=== PATIENT | female | born 1995 | race Caucasian/White ===

== ENCOUNTER 2018-11-27 07:48 | Inpatient (IN) | payer OTHER ==
[2018-11-27] MEDS ORDERED: Bupivacaine/Epinephrine 0.25% 30 ML VIAL ONE ×2 (08:36→10:26)
[2018-11-27] MEDS ORDERED: Midazolam HCl 2 mg/2 ml Vial ONE (08:42)
[2018-11-27] MEDS ORDERED: Fentanyl 250 MCG/5 ML VIAL ONE ×2 (08:45→10:44)
--- NOTE | 2018-11-27 09:01 | HP ---
CHIEF COMPLAINT: Right upper quadrant abdominal pain. HISTORY OF PRESENT ILLNESS: The patient is a 23-year-old female, who is in June and since just before the child was born, she has been having episodic right upper quadrant pain, which became much worse over the last 48 hours and now is more radiating to the back associated with nausea, no vomiting. She went to the emergency room, where an ultrasound shows cholelithiasis. She denies jaundice, but she has had some dark stools. PAST MEDICAL HISTORY: Otherwise healthy. PAST SURGICAL HISTORY: None. ALLERGIES: SHE HAS NO KNOWN DRUG ALLERGIES. FAMILY HISTORY: Diabetes, hypertension, and lung cancer. SOCIAL HISTORY: Again, she is recently . She works as a residential property tax appraiser. PHYSICAL EXAMINATION: GENERAL: Awake, alert, in no apparent distress. HEENT: No jaundice. LUNGS: Clear. HEART: Regular rate and rhythm. ABDOMEN: Soft, tender right upper quadrant. No peritoneal signs. EXTREMITIES: Unremarkable. LABORATORY DATA: White count 5.2, H and H of 13 and 40, and platelet count 253. Her LFTs are elevated, alkaline phosphatase 158, ALT 830, AST 924, and T-bili 2.3. ASSESSMENT: Symptomatic cholelithiasis with possible choledocholithiasis. PLAN: Laparoscopic cholecystectomy with cholangiogram. CONSENT: I have discussed planned procedure as well as risk of bleeding, infection, injury to bile duct, injury to bowel, need to open, she understands and gives informed consent. Job ID: [id number]
[2018-11-27 09:33] LABS: BHCG - Serum Negative (NEGATIVE); Pregs Control Background? CLEAR/WHITE (CLR/WHITE); Pregs Control Bar Appear? YES (CONTROL BAR)
[2018-11-27] MEDS ORDERED: Morphine 4 MG/ML VIAL ONE (09:43)
[2018-11-27] MEDS ORDERED: Iothalamate Meglumine 60% 50 ML VIAL FS ONE (10:43)
--- NOTE | 2018-11-27 11:39 | RAD ---
EXAM: Cholangiogram in surgery HISTORY: Cholelithiasis COMPARISON: None FINDINGS: Limited intraoperative fluoroscopic views were taken during a cholangiogram in surgery. The common bile duct is normal in caliber without filling defect. No leakage from the common bile duct. Contrast is not seen passing into the duodenum. No abnormality of the intrahepatic bile ducts. IMPRESSION: Failure of passage of contrast into the duodenum on the provided images. Correlate clinically. This c ould represent an obstruction at the ampulla of Vater or insufficient contrast administration.
[2018-11-27] MEDS ORDERED: Dextrose 50% Abboject 50 ML SYRINGE SLOW IVP PRN (11:52)
[2018-11-27] MEDS ORDERED: Promethazine HCl 25 MG/ML VIAL IM PRN ×2 (11:52→11:57)
[2018-11-27] MEDS ORDERED: Dextrose 5% in Water 1,000 ML IV PRN (11:52)
[2018-11-27] MEDS ORDERED: Ondansetron PF 4 MG/2 ML Vial IVP PRN (11:52)
[2018-11-27] MEDS ORDERED: Mag-Al 1200 mg/1200 mg/30 ML UDCUP PO PRN (11:52)
[2018-11-27] MEDS ORDERED: HYDROcodone/Acetaminophen 10/325 mg Tablet PO PRN ×2 (11:52)
[2018-11-27] MEDS ORDERED: Calcium Carbonate 500 MG ChewTAB PO PRN (11:52)
[2018-11-27] MEDS ORDERED: Morphine 4 MG/ML VIAL SLOW IVP PRN ×2 (11:52→14:28)
[2018-11-27] MEDS ORDERED: hydrALAZINE 20 MG/ML VIAL SLOW IVP PRN (11:52)
[2018-11-27] MEDS ORDERED: Promethazine HCl 25 MG/ML VIAL SLOW IVP PRN (11:57)
[2018-11-27] MEDS ORDERED: Ondansetron HCl/PF 4 MG/2 ML Vial IVP PRN (11:57)
[2018-11-27] MEDS ORDERED: Fentanyl 100 MCG/2 ML VIAL ONE ×2 (12:05→12:28)
--- NOTE | 2018-11-27 12:11 | OP ---
DATE OF PROCEDURE: 11/27/2018 PREOPERATIVE DIAGNOSIS: Acute cholecystitis with elevated liver functions. PROCEDURE PERFORMED: Laparoscopic cholecystectomy with cholangiogram. INDICATIONS: This is a 23-year-old female, who has been having about 3-month history of episodic right upper quadrant pain, which became much worse over the last 36 hours, radiating to back associated with nausea and vomiting. Ultrasound showed cholelithiasis. Her bilirubin was 2.2 and transaminases elevated. FINDINGS: An obstructed distal common bile duct, thickening of the gallbladder wall with edema. DESCRIPTION OF PROCEDURE: After informed consent was obtained, the patient was taken to the operating room and given general endotracheal anesthesia. She was placed in the supine position. Abdomen was prepped and draped in usual fashion. Local anesthesia infiltrated subcutaneously and deep and a subumbilical incision was performed. Subcu divided sharply. The fascia was grasped and 2 stay sutures of 0 Vicryl placed in each side of midline. Midline incised. Digital palpation revealed no local adhesions. A blunt 12-mm trocar inserted and under direct vision, three 5 mm ports were placed subcostally. The gallbladder was grasped and advanced superiorly. There were adhesions. Also, the gallbladder had to be decompressed prior to grabbing it because it was so distended. Approximately 50 mL of bile removed. The peritoneum opened distally to expose the cystic duct and artery in critical view. The artery was triply ligated and divided. A clip was placed at the base of the gallbladder. An incision made in the cystic duct. An Arrow cholangiocatheter inserted. Intraoperative cholangiogram showed no filling defects, but no flow into the duodenum suggestive of a distal common bile duct obstruction. The cystic duct was triply ligated with hemoclips and divided. The gallbladder removed from its fossa utilizing electrocautery, removed from the abdomen in an endosac through the umbilical port. Hemostasis was assured. Trocars and retractors were removed. The fascia was closed with interrupted 2-0 Vicryl suture. The skin was closed with interrupted 4-0 Rapide. Dermabond applied. The patient tolerated the procedure well, transferred to Recovery in good condition. Sponge and needle count verified correct x2. Job ID: [id number]
[2018-11-27] MEDS ORDERED: Morphine 2 MG/ML SYRINGE SLOW IVP PRN (13:40)
[2018-11-27] MEDS: Ketorolac Tromethamine 30 MG/ML VIAL IVP SCH ×3 (13:49→23:51)
[2018-11-27] MEDS ORDERED: Ondansetron PF 4 MG/2 ML Vial ONE (14:41)
[2018-11-27] MEDS ORDERED: PROPOFOL 200 MG/20 ML VIAL ONE (14:41)
[2018-11-27] MEDS ORDERED: Rocuronium Bromide 10 MG/ML (10ML VIAL) ONE (14:41)
[2018-11-27] MEDS ORDERED: Glycopyrrolate 0.2 MG/ML 5 ML SYRINGE ONE (14:41)
[2018-11-27] MEDS ORDERED: Dexamethasone 20 MG/5 ML VIAL ONE (14:41)
[2018-11-27] MEDS: Morphine 4 MG/ML VIAL SLOW IVP PRN ×7 (15:08→23:51)
[2018-11-27 17:16] VITALS: BMI 21.0
[2018-11-27] MEDS: D5 1/2 NS w/20 mEq KCL 1,000 ML IV SCH ×2 (18:06→20:54)
[2018-11-27] MEDS: Piperacillin/Tazobactam 3.375 GM in Sodium Chloride 0.9% 100 ML IVPB SCH ×3 (18:07→23:52)
--- NOTE | 2018-11-27 20:43 | CON ---
DATE OF CONSULTATION: 11/27/2018 CHIEF COMPLAINT: Abdominal pain. HISTORY OF PRESENT ILLNESS: Ms. Graff is a 23-year-old woman, who delivered a healthy baby boy back in June. A week before delivery, she had her first episode of right upper quadrant abdominal pain that was associated with nausea and radiated across her upper abdomen and to her back. This pain lasted for 30 to 40 minutes. Since then, she has had a similar episode about every 2 weeks. Tuesday night, two nights ago, she woke up with more severe pain and this time the pain persisted. She had nausea and pain that went all day Tuesday and then ultimately worsened yesterday such that she went to [facility] ER. She had an ultrasound done that showed gallstones and gallbladder wall thickening. Her common bile duct measured 3 mm. Her bilirubin was 2.3 with a GGT of 169, an AST of 924, ALT of 835, and alkaline phosphatase of 158. Creatinine was 0.7. Platelets 253. White blood cell count was 5.2 and hemoglobin 13.8. With these findings, she was transferred to [facility] Day [facility] and Dr. Cowan performed laparoscopic cholecystectomy with intraoperative cholangiogram today. The intraoperative cholangiogram showed failure of passage of contrast into the duodenum and GI was consulted to evaluate for ERCP. The patient continues to have back pain as her primary complaint before surgery and persisting afterwards. She has received morphine for that with some improvement. She is on antibiotics. PAST MEDICAL HISTORY: Otherwise negative. PAST SURGICAL HISTORY: Negative. FAMILY HISTORY: She had a great uncle with lung cancer. SOCIAL HISTORY: Glass of wine per week. No drugs or alcohol or smoking otherwise. ALLERGIES: NO KNOWN DRUG ALLERGIES. MEDICATIONS: Prior to admission, none. REVIEW OF SYSTEMS: Negative x10 systems reviewed except as stated in the history of present illness. PHYSICAL EXAMINATION: VITAL SIGNS: Temperature 97.5, pulse 60, blood pressure 131/87. GENERAL: She is in no acute distress. Alert and oriented x3. HEENT: Eyes have no scleral icterus. Oropharynx is clear without lesions. No cervical or supraclavicular lymphadenopathy. LUNGS: Clear to auscultation bilaterally. HEART: Regular rate and rhythm without murmur. ABDOMEN: Soft. She does have minimal tenderness in the epigastric region now. Her bowel sounds are present. EXTREMITIES: No lower extremity edema. EXTREMITIES: Cranial nerves are grossly intact. LABORATORY DATA: Her serum test was negative. The other labs were noted in the history of present illness. IMAGING STUDIES: Again, the ultrasound was noted in the history of present illness. Intraoperative cholangiogram showed no flow of bile to the duodenum. IMPRESSION: 1. Choledocholithiasis. 2. Cholecystitis, status post laparoscopic cholecystectomy today with abnormal intraoperative cholangiogram. 3. Abnormal liver function tests with transaminases in the 800 to 900 range, elevated bilirubin, and alkaline phosphatase. Her symptoms have been typical of biliary symptoms leading up to this. The lipase was a qualitative level from [facility] ER and was reported as negative. She did receive a liter of saline bolus in the ER last night. She received a liter of lactated Ringer's during surgery today. I will recheck a lipase. RECOMMENDATIONS: 1. ERCP tomorrow morning. 2. Continue antibiotics. She is currently on Zosyn. 3. Recheck lipase now and in the morning along with liver function tests tomorrow morning. I explained the risks and benefits in detail of ERCP with the patient. This includes risks for bleeding, infection, perforation, pancreatitis and inability to cannulate the common bile duct. Job ID: [id number]
[2018-11-27] MEDS: Famotidine 20 MG TAB PO SCH (20:50)
[2018-11-27] MEDS: Famotidine/PF 20 mg/2ml Vial SLOW IVP SCH (20:50)
[2018-11-28] MEDS: Morphine 4 MG/ML VIAL SLOW IVP PRN ×2 (01:38→15:26)
[2018-11-28] MEDS: D5 1/2 NS w/20 mEq KCL 1,000 ML IV SCH ×3 (04:10→23:22)
[2018-11-28] MEDS: Ketorolac Tromethamine 30 MG/ML VIAL IVP SCH ×4 (06:12→23:21)
[2018-11-28] MEDS: Piperacillin/Tazobactam 3.375 GM in Sodium Chloride 0.9% 100 ML IVPB SCH ×4 (06:13→23:21)
[2018-11-28 06:22] LABS: #Eosinphils 0.1 thou/uL (0.0-0.7); #Lymphocytes 1.9 thou/uL (1.20-3.40); #Monocytes 0.6 thou/uL (0.11-0.59); #Neutrophils 4.3 thou/uL (1.40-6.50); %Basophils 0.3 % (0.0-1.0); %Eosinophils 1.1 % (0.0-10.0); %Lymphocytes 26.8 % (21.0-51.0); %Monocytes 9.1 % (0.0-10.0); %Neutrophils 62.8 % (42.0-75.0); Hemoglobin 12.4 g/dL (12.0-16.0); Mean Corpuscular HGB CONC 33.1 g/dL (32.0-36.0); Mean Corpuscular Hemoglobin 28.9 pg (27.0-31.0); Mean Corpuscular Volume 87.4 fL (78.0-98.0); Mean Platelet Volume 8.4 fL (7.4-10.4); Platelet Count 209 thou/uL (130-400); RBC Distribution Width 12.5 % (11.5-14.5); Red Blood Cell (RBC) Count 4.29 mill/uL (4.20-5.40); White Blood Cell (WBC) Count 6.9 thou/uL (4.8-10.8)
[2018-11-28 06:42] LABS: ALT (SGPT) 762 U/L (8-55); AST (SGOT) 333 U/L (5-34); Albumin 3.7 g/dL (3.5-5.0); Alkaline Phosphatase 161 U/L (40-150); Anion Gap 9 mmol/L (10-20); BUN (Urea Nitrogen) 5 mg/dL (7.0-18.7); Calc. Creatinine Clearance 106 mL/min (70-130); Calcium 8.5 mg/dL (7.8-10.44); Carbon Dioxide 24 mmol/L (22-29); Chloride 106 mmol/L (98-107); Estimated GFR-MDRD 90; Globulin 2.3 g/dL (2.4-3.5); Glucose 107 mg/dL (70-105); Lipase 278 U/L (8-78); Potassium 4.1 mmol/L (3.5-5.1); Sodium 135 mmol/L (136-145)
[2018-11-28 06:57] LABS: ALT (SGPT) 767 U/L (8-55); AST (SGOT) 332 U/L (5-34); Albumin 3.7 g/dL (3.5-5.0); Alkaline Phosphatase 164 U/L (40-150); Bilirubin, Direct 0.6 mg/dL (0.1-0.3)
--- NOTE | 2018-11-28 07:34 | PDOC.GSPN ---
Surgery Progress Note: Subj - Subjective Narrative: Ms. Graff is a 23 y/o female post operative day 1 following laparoscopic cholecystectomy with cholangiogram. The cholangiogram showed an obstructed distal common bile duct, so pt was scheduled for an ERCP today at 11 a.m. Currently, she states that "I feel better than I did yesterday", describing a constant, achy, 4/10 pain that fluctuates between her RUQ and back. Per nurse, pt was rating pain 9/10 yesterday evening and frequently requesting morphine; however, this morning pt states that her pain is currently well controlled. Pt slept well, is urinating without difficulties, has not had a bowel movement, and has been NPO since midnight in preparation for ERCP today. She is ambulating to the bathroom well, but was told by a nurse not to walk the floors while taking morphine. Denies fever, SOB, hematemesis, N/V/D, melena, hematochezia, chest pain. Surgery Progress Note: Obj - Vital signs Vital signs: Vital Signs - Most Recent Temp Pulse Resp BP Pulse Ox 98.8 F 59 L 16 102/69 98 11/28/18 04:07 11/28/18 04:07 11/28/18 04:07 11/28/18 04:07 11/28/18 04:07 - Physical Exam General: other (Pt was out of bed sitting upright on the couch in no apparent distress.) ENT: normal mucosa, other (no scleral icterus, moist mucous membranes) Cardiovascular: regular rate and rhythm, no murmur Respiratory: clear to auscultation, normal respiratory effort, breath sounds present Abdomen: other (Abdomen is soft, non-distended, NABS, and mildly tender in RUQ with palpation. Incision sites are healing well with no erythema/edema/warmth concerning of infection.) Wound: healing well Surgery Progress Note: Results - Labs Result Diagrams: 11/28/18 06:02 11/28/18 06:02 Lab results: Laboratory Results - last 24 hr 11/28/18 11/28/18 11/28/18 06:02 06:02 06:02 WBC 6.9 RBC 4.29 Hgb 12.4 Hct 37.5 MCV 87.4 MCH 28.9 MCHC 33.1 RDW 12.5 Plt Count 209 MPV 8.4 Neutrophils % 62.8 Lymphocytes % 26.8 Monocytes % 9.1 Eosinophils % 1.1 Basophils % 0.3 Neutrophils # 4.3 Lymphocytes # 1.9 Monocytes # 0.6 H Eosinophils # 0.1 Basophils # 0.0 Sodium 135 L Potassium 4.1 Chloride 106 Carbon Dioxide 24 Anion Gap 9 L BUN 5 L Creatinine 0.80 Estimated GFR (MDRD) 90 Glucose 107 H Calcium 8.5 Total Bilirubin 1.0 1.0 Direct Bilirubin 0.6 H AST 333 H 332 H ALT 762 H 767 H Alkaline Phosphatase 161 H 164 H Serum Total Protein 6.0 6.0 Albumin 3.7 3.7 Globulin 2.3 L Albumin/Globulin Ratio 1.6 Lipase 278 H Surgery Progress Note: A/P - Problem (1) S/P cholecystectomy Current Visit: Yes Code(s): Z90.49 - ACQUIRED ABSENCE OF OTHER SPECIFIED PARTS OF DIGESTIVE TRACT Status: Acute - Plan Plan: Ms. Graff is a 23 y/o female post operative day 1 from laparoscopic cholecystectomy with cholangiogram that showed an obstructed distal common bile duct. Pt was admitted overnight and remains NPO for scheduled ERCP this morning. Pt's pain is currently well controlled and she is able to ambulate to bathroom and urinate without difficulty. She has remained afebrile the entire time she's been on the floor, vitals are WNL, and remains on Zosyn (last dose was 11/28 at 0613). Pt's CBC from 11/28/18 at 0600 is WNL, AST is 332, ALT 767, Alk Phosphatase is 164, total bilirubin is 1.0 and direct is 0.6 (H), while Lipase has increased to 278 today from 17 on 11/27. We will continue to monitor for any post-op complications and plan is to discharge patient following ERCP, if stable.
[2018-11-28] MEDS ORDERED: Indomethacin 50 MG SUPP ONE (09:59)
[2018-11-28] MEDS ORDERED: Iothalamate Meglumine 60% 50 ML VIAL FS ONE (09:59)
[2018-11-28] MEDS ORDERED: Fentanyl 100 MCG/2 ML VIAL ONE ×2 (10:04→10:13)
[2018-11-28] MEDS ORDERED: Midazolam HCl 2 mg/2 ml Vial ONE (10:13)
--- NOTE | 2018-11-28 11:09 | RAD ---
ERCP: DATE: 11/28/18 Five fluoroscopic images presented from ERCP procedure. INDICATION: Imaging during ERCP. FINDINGS/IMPRESSION: These images show opacification of the common duct and biliary tree. Evidence of cholecystectomy with cystic duct remnant. No definite stricture or filling defect identified. POS: OFF
--- NOTE | 2018-11-28 13:52 | PRG ---
DATE OF SERVICE: 11/28/2018 SUBJECTIVE: The patient reports that she had tremendous pain last night, but this morning feels a lot better. Nausea has resolved. Pain has gone. OBJECTIVE: VITAL SIGNS: On examination, temperature is 98.5, pulse 60, blood pressure 106/72. GENERAL: She is awake, alert, in no apparent distress. No jaundice. LUNGS: Clear. HEART: Regular rate and rhythm. LABORATORY DATA: Her white count is 6.9, hemoglobin and hematocrit of 12 and 37, platelet count 209. Her LFTs have come back down with her bilirubin now at 1, AST is 333, ALT 760, alkaline phosphatase 161, lipase 278. ASSESSMENT: Doing well, probably passed the stone. PLAN: ERCP later today. Job ID: [id number]
[2018-11-28] MEDS ORDERED: Dexamethasone 20 MG/5 ML VIAL ONE (15:18)
[2018-11-28] MEDS ORDERED: Ondansetron PF 4 MG/2 ML Vial ONE (15:18)
[2018-11-28] MEDS ORDERED: PROPOFOL 200 MG/20 ML VIAL ONE (15:18)
[2018-11-28] MEDS ORDERED: Lidocaine 1% PF 5 ML VIAL ONE (15:18)
[2018-11-28] MEDS ORDERED: Glycopyrrolate 0.2 MG/ML 5 ML SYRINGE ONE (15:18)
[2018-11-28] MEDS ORDERED: Rocuronium Bromide 10 MG/ML (10ML VIAL) ONE (15:18)
--- NOTE | 2018-11-28 15:54 | OP ---
DATE OF PROCEDURE: 11/28/2018 PREPROCEDURE DIAGNOSIS: Status post laparoscopic cholecystectomy with positive intraoperative cholangiogram, elevated liver enzymes. POSTOPERATIVE DIAGNOSIS: No overt filling defects in the common bile duct, this is dilated to about 9 mm. PROCEDURE PERFORMED: Endoscopic retrograde cholangiopancreatography with sphincterotomy and stone removal of biliary debris, but no overt large stones to bile duct. RECOMMENDATIONS: Observe. If the patient does well, can be discharged this evening. ANESTHESIA: General endotracheal anesthesia. PROCEDURE IN DETAIL: The patient was informed of the risks, benefits, and possible complications of endoscopy including perforation, reaction to medication, and aspiration, informed consent was obtained. The patient brought to endoscopy suite, where she was sedated in gradual fashion. Once she was comfortable, she was intubated and placed in a prone position. A drama therapist film was obtained showing clips in the right upper quadrant consistent with previous cholecystectomy. The side-viewing duodenoscope was advanced with bite block to esophagus, stomach, and second and third portions of the duodenum and was brought into view. A cannulation was obtained, and cholangiogram revealed no overt large filling defects. There was no spontaneous drainage of contrast. The sphincterotomy was performed over a guidewire. The duct was then swept x4 with occlusion cholangiogram showing no overt filling defects. There were no signs of bile leak. There was a little bit of debris in the balloon and so some debris was extracted. This may have been the cause of the abnormal IOC. In any event, either that happened or she passed the stone, the scope was removed. The stomach was desufflated. The patient was brought to recovery room in stable condition. Job ID: [id number]
[2018-11-28] MEDS: Famotidine 20 MG TAB PO SCH ×2 (16:56→21:03)
[2018-11-28] MEDS: Famotidine/PF 20 mg/2ml Vial SLOW IVP SCH ×2 (16:56→21:03)
[2018-11-29] MEDS: Ketorolac Tromethamine 30 MG/ML VIAL IVP SCH (05:55)
[2018-11-29] MEDS: Piperacillin/Tazobactam 3.375 GM in Sodium Chloride 0.9% 100 ML IVPB SCH (05:56)
[2018-11-29] MEDS: D5 1/2 NS w/20 mEq KCL 1,000 ML IV SCH (05:56)
[2018-11-29 06:26] LABS: ALT (SGPT) 550 U/L (8-55); AST (SGOT) 139 U/L (5-34); Albumin 3.7 g/dL (3.5-5.0); Alkaline Phosphatase 144 U/L (40-150); Bilirubin, Direct 0.3 mg/dL (0.1-0.3); Bilirubin, Total 0.5 mg/dL (0.2-1.2)
--- NOTE | 2018-11-29 07:14 | PDOC.GSPN ---
Surgery Progress Note: Subj - Subjective Narrative: Ms. Graff is a 23 y/o female post operative day 2 following laparoscopic cholecystectomy with cholangiogram. She had an ERCP yesterday with sphincterotomy which showed no overt large stones in common bile duct. Pt was kept overnight because she became bradycardic, which has now resolved. This morning pt states, "I'm feeling better...ready to go home". RUQ and back pain have completely resolved with only an achy 3/10 pain at the umbilical incision site, which is controlled with Toradol (last dose 0555 today). LFTs are improving and she remains on Zosyn (last dose 0556 today). Diet has been advanced to full liquids and pt has tolerated that, and some crackers given last night, well. States that her appetite is still low, but forcing herself to drink/eat. She is walking to bathroom unassisted and having multiple voids, but still has not had a bowel movement. Denies N/V/D, fever, dysphagia, melena , or hematochezia. Surgery Progress Note: Obj - Vital signs Vital signs: Vital Signs - Most Recent Temp Pulse Resp BP Pulse Ox 98.6 F 65 18 118/67 99 11/29/18 03:56 11/29/18 03:56 11/29/18 03:56 11/29/18 03:56 11/29/18 03:56 - Physical Exam General: no distress ENT: other (no sclera icterus, normal mucosa, moist mucous membranes) Cardiovascular: regular rate and rhythm, no murmur Respiratory: clear to auscultation, normal respiratory effort Abdomen: other (soft, non-distended, NABS, mild tenderness with palpation near umbilicus. Incision sites are healing well with no erythema, edema, or warmth concerning of infection.) Wound: healing well Surgery Progress Note: Results - Labs Result Diagrams: 11/28/18 06:02 11/28/18 06:02 Lab results: Laboratory Results - last 24 hr 11/29/18 05:54 Total Bilirubin 0.5 Direct Bilirubin 0.3 AST 139 H ALT 550 H Alkaline Phosphatase 144 Serum Total Protein 6.0 Albumin 3.7 Surgery Progress Note: A/P - Problem (1) S/P cholecystectomy Code(s): Z90.49 - ACQUIRED ABSENCE OF OTHER SPECIFIED PARTS OF DIGESTIVE TRACT Status: Acute - Plan Plan: Ms. Graff is a 23 y/o female post operative day 2 from lap. cholecystectomy with cholangiogram. ERCP yesterday showed no overt large stone obstructing the common bile duct, but patient was kept overnight because she became bradycardic, which has now resolved. Today she states that she is feeling well and is ready to go home. LFTs are improving, with today's labs of AST 139 (was 333 yesterday), ALT 550 (762), and Alk. Phosphatase 144 (161). Plan is to discharge patient today with Toradol for pain control.
[2018-11-29] MEDS: Famotidine/PF 20 mg/2ml Vial SLOW IVP SCH (07:33)
[2018-11-29] MEDS: Famotidine 20 MG TAB PO SCH (07:44)
[2018-11-29 08:06] VITALS: BP 114/70; TEMP 98.7
--- NOTE | 2018-11-30 04:47 | DIS ---
DATE OF ADMISSION: 11/27/2018 DATE OF DISCHARGE: 11/29/2018 DISCHARGE DIAGNOSES: 1. Acute cholecystitis. 2. Choledocholithiasis. PROCEDURES DURING ADMISSION: 1. Laparoscopic cholecystectomy with intraoperative cholangiogram. 2. Endoscopic retrograde cholangiopancreatogram. HOSPITAL COURSE: The patient was admitted, given IV antibiotics, taken to the operating room, where she underwent a laparoscopic cholecystectomy with cholangiogram. This showed an obstruction of the distal common bile duct. Her LFTs were elevated. GI was consulted. She had tremendous pain. By the morning, the pain had resolved and her LFTs had come down. ERCP showed no residual filling defect, but a sphincterotomy was performed. Postprocedure, she has done well. She feels fine now. She is tolerating a regular diet. Pain is controlled on p.o. medications. She is discharged home on hydrocodone and Zofran. She will follow up with me in 2 weeks. Job ID: [id number]
== END 2018-11-29 09:27 | disposition home or self-care (01) | DRG 419 ==
LOC: SDC 07:48 → 3SE 12:53
PROVIDERS: ADMIT Surgery; ATTEND Surgery
PROC: 0FT44ZZ Resection of Gallbladder, Percutaneous Endoscopic Approach (ICD-10-PCS; principal; 2018-11-27)
PROC: BF10YZZ Fluoroscopy of Bile Ducts using Other Contrast (ICD-10-PCS; 2018-11-27)
PROC: 0FC98ZZ Extirpation of Matter from Common Bile Duct, Via Natural or Artificial Opening Endoscopic (ICD-10-PCS; 2018-11-28)
DX: K80.43 Calculus of bile duct with acute cholecystitis with obstruction (principal)
CPT/HCPCS: 36415; 47532; 74330; 80053; 80076; 83690; 84703; 85025; 88304; J1100; J1885; J2001; J2250; J2270; J2405; J2543; J2704; J3010; J3490; S0028

== ENCOUNTER 2018-11-30 18:15 | Emergency (ER) | payer OTHER ==
[2018-11-30 19:10] LABS: #Monocytes 0.4 thou/uL (0.11-0.59); #Neutrophils 3.7 thou/uL (1.40-6.50); %Basophils 0.4 % (0.0-1.0); %Eosinophils 0.9 % (0.0-10.0); %Lymphocytes 19.7 % (21.0-51.0); %Monocytes 8.5 % (0.0-10.0); %Neutrophils 70.6 % (42.0-75.0); Hemoglobin 14.1 g/dL (12.0-16.0); Mean Corpuscular HGB CONC 33.8 g/dL (32.0-36.0); Mean Corpuscular Hemoglobin 29.1 pg (27.0-31.0); Mean Corpuscular Volume 86.2 fL (78.0-98.0); Platelet Count 230 thou/uL (130-400); RBC Distribution Width 12.5 % (11.5-14.5); Red Blood Cell (RBC) Count 4.86 mill/uL (4.20-5.40); White Blood Cell (WBC) Count 5.2 thou/uL (4.8-10.8)
[2018-11-30 19:26] LABS: BHCG - Serum Negative (NEGATIVE); Pregs Control Background? CLEAR/WHITE (CLR/WHITE); Pregs Control Bar Appear? YES (CONTROL BAR)
--- NOTE | 2018-11-30 19:36 | RAD ---
RADIOGRAPH CHEST 1 VIEW: DATE: 11/30/2018 7:28 PM HISTORY: 23-year-old female with fever. FINDINGS: The visualized lung medina superior to the bilateral hemidiaphragms are clear. The cardiomediastinal silhouette and hilar shadows are normal. The lateral costophrenic angles are sharp. The osseous structures appear normal. There is no pneumothorax. Slightly increased attenuation of that portion of the retrocardiac base of the left lower lobe projecting inferior to the left hemidiaphragm. IMPRESSION: 1. Questionable pulmonary density at posterior base of left lower lobe. Recommend lateral view. 2. The rest of the chest is normal.
[2018-11-30] MEDS ORDERED: Acetaminophen 325 MG TAB ONE (19:37)
[2018-11-30 19:58] LABS: ALT (SGPT) 432 U/L (8-55); AST (SGOT) 87 U/L (5-34); Albumin 4.6 g/dL (3.5-5.0); Alkaline Phosphatase 165 U/L (40-150); Anion Gap 19 mmol/L (10-20); BUN (Urea Nitrogen) 5 mg/dL (7.0-18.7); Bilirubin, Total 0.6 mg/dL (0.2-1.2); Calc. Creatinine Clearance 0 mL/min (70-130); Calcium 10.2 mg/dL (7.8-10.44); Carbon Dioxide 22 mmol/L (22-29); Chloride 101 mmol/L (98-107); Estimated GFR-MDRD 85; Globulin 3.1 g/dL (2.4-3.5); Glucose 71 mg/dL (70-105); Lipase 20 U/L (8-78); Potassium 4.3 mmol/L (3.5-5.1); Protein, Total 7.7 g/dL (6.0-8.3); Sodium 138 mmol/L (136-145)
[2018-11-30 20:45] LABS: Bilirubin Negative (Negative); Blood, Urine Negative (Negative); Clarity Clear (Clear); Glucose, Urine (Dipstick) Normal (Negative); Leukocyte Negative Leu/uL (Negative); Nitrite Negative (Negative); Protein, Urine (Dipstick) Negative (Neg-Trace)
--- NOTE | 2018-11-30 22:06 | ULT ---
ULTRASOUND ABDOMEN LIMITED: (RIGHT UPPER QUADRANT) DATE: 11/30/2018 HISTORY: 23-year-old female with fever after cholecystectomy a few days ago. FINDINGS: Gallbladder:Surgically absent. Small amount of fluid plus echogenic material with shadowing in the ga llbladder fossa, presumably representing post cholecystectomy small hematoma, which is expected at this stage. Common duct: 4 mm. Liver:Normal size and echogenicity Pancreas:Unremarkable sonographic appearance Right kidney:No hydronephrosis IMPRESSION: Status post cholecystectomy with recent postoperative changes in gallbladder fossa.
== END 2018-11-30 23:01 | disposition home or self-care (01) ==
LOC: ERS 18:15
DX: R50.9 Fever, unspecified (principal)
CPT/HCPCS: 71045; 76705; 80053; 81003; 83690; 84703; 85025; 96360